=== PATIENT | male | born 1990 | race African-American/Black ===

== ENCOUNTER 2025-02-05 09:47 | Emergency (ER) | payer OTHER ==
[~2025-02-05] VITALS: Ht 180.3 cm; Wt 72.6 kg
[2025-02-05] MEDS: IBUPROFEN 600 MG TABLET PO ONE (10:24)
[2025-02-05] MEDS ORDERED: NAPROXEN 250 MG TABLET ONE (10:26)
[2025-02-05] MEDS: NAPROXEN 500 MG TABLET PO STA (10:30)
[2025-02-05 11:04] VITALS: BP 121/78; TEMP 98.5; O2SAT 98
== END 2025-02-05 11:06 ==
LOC: ER 09:50
DX: M25.561 Pain in right knee (principal); Z65.3 Problems related to other legal circumstances
CPT/HCPCS: 73590-TC